=== PATIENT | female | born 1970 | race Caucasian/White ===

== ENCOUNTER 2016-08-08 19:59 | Emergency (ER) | payer MEDICAID ==
[~2016-08-08] VITALS: Ht 162.6 cm; Wt 71.1 kg
[~2016-08-08 19:59] MED LIST: PANT40TA3 PO; SERT25TA PO
[2016-08-08] MEDS ORDERED: SODIUM CHLORIDE 0.9% 1,000 ML IV ONE (20:17)
[2016-08-08] MEDS ORDERED: ONDANSETRON 2MG/ML, 2ML ONE (20:28)
[2016-08-08] MEDS ORDERED: MORPHINE SULFATE 4 MG/ML, 1ML ONE ×2 (20:28→21:42)
[2016-08-08] MEDS ORDERED: OXYcodone/APAP 5/325MG TABLET PO ONE (20:30)
[2016-08-08] MEDS ORDERED: SODIUM CHLORIDE FLUSH 10ML SYR IVF ONE (20:30)
[2016-08-08] MEDS ORDERED: ONDANSETRON 2MG/ML, 2ML IVPush ONE (20:30)
[2016-08-08] MEDS: MORPHINE SULFATE 4 MG/ML, 1ML IVPush PRN ×2 (20:35→21:45)
[2016-08-08 20:44] LABS: BLOOD UREA NITROGEN 18 mg/dL (7-18)
[2016-08-08] MEDS ORDERED: BUPR-86 PO (20:47)
[2016-08-08] MEDS ORDERED: OMNIPAQUE 350 MG/ML, 100ML BOTTLE ONE (21:18)
[2016-08-08 21:44] VITALS: BP 132/72
[2016-08-08] MEDS ORDERED: KETOROLAC 30 MG/1 ML ONE (21:59)
[2016-08-08] MEDS ORDERED: KETOROLAC 30 MG/1 ML IVPush ONE (22:00)
== END 2016-08-08 22:28 | disposition home or self-care (01) ==
LOC: ED 22:00
DX: S13.4XXA Sprain of ligaments of cervical spine, initial encounter (principal); S30.1XXA Contusion of abdominal wall, initial encounter; S09.90XA Unspecified injury of head, initial encounter; V80.010A Animal-rider injured by fall from or being thrown from horse in noncollision accident, initial encounter; Y93.89 Activity, other specified; Y99.8 Other external cause status; Y92.9 Unspecified place or not applicable
CPT/HCPCS: 36415; 70450; 72125; 72131; 74177; 80048; 82040; 85025; 96361; 96374; 96375; 96376; 99285; J1885; J2405; J7030; Q9967

== ENCOUNTER 2017-07-02 21:20 | Emergency (ER) | payer MEDICAID ==
[~2017-07-02] VITALS: Ht 162.6 cm; Wt 69.6 kg
[~2017-07-02 21:20] MED LIST changes: +BUPR-86 PO
[2017-07-02 22:15] VITALS: BP 134/78
== END 2017-07-02 22:17 | disposition home or self-care (01) ==
LOC: ED 21:45
DX: B34.9 Viral infection, unspecified (principal)
CPT/HCPCS: 99281

== ENCOUNTER 2020-04-01 15:00 | Observation (INO) | payer BC, MEDICAID ==
[~2020-04-01] VITALS: Ht 162.6 cm; Wt 71.1 kg
--- NOTE | 2020-04-01 15:26 | NUR ---
RESEARCH SPECIALIST: PT TO ROOM FROM ELOISA SHARMA
--- NOTE | 2020-04-01 15:45 | NUR ---
PROVIDER AT BS. PT A&OX4, RESP EVEN & UNLABORED, SPEECH CLEAR, SKIN WNL. C/O DEEP INTERMITTENT LT LATERAL CP X 1 WEEK WHILE DRIVING TO WORK. NO MEDS TAKEN FOR SX. DENIES SOB, DYSPNEA, N/V. TODAY: "FELT SHAKY AND WEIRD". LAST ORAL INTAKE: 1030. LMP: HYST RX: ESTROGEN PATCH X 1 YEAR. HAS BEEN SEEN AT [facility] FOR SIMILAR SX.
[2020-04-01] MEDS ORDERED: ESTR-19 TD (15:57)
[2020-04-01] MEDS ORDERED: SERT-238 PO (15:57)
[2020-04-01] MEDS ORDERED: SODIUM CHLORIDE FLUSH 10ML SYR IVF ONE (16:00)
[2020-04-01] MEDS ORDERED: ASPIRIN 81 MG TABLET CHEW PO ONE (16:00)
--- NOTE | 2020-04-01 16:06 | NUR ---
DR PIERRE AT BS
[2020-04-01] MEDS ORDERED: ASPIRIN 81 MG TABLET CHEW ONE (16:13)
--- NOTE | 2020-04-01 16:16 | NUR ---
PT WAS AMBULATORY TO & FROM [facility] W/OUT INCIDENT; GAIT STEADY; CLEAR PALE YELLOW URINE SPECIMEN PROVIDED. CXR DONE. ASA GIVEN PER EMAR.
[2020-04-01] MEDS ORDERED: ASCORBIC ACID 500 MG TABLET ONE (16:34)
[2020-04-01 16:36] LABS: BASOPHILS % (AUTO) 1 % (0-1); EOSINOPHILS % (AUTO) 1 % (1-7); LYMPHOCYTES % (AUTO) 32 % (22-44); MEAN CORPUSCULAR HEMOGLOBIN 29.5 pg (27.0-34.8); MEAN CORPUSCULAR HGB CONC 33.5 g/dL (32.4-35.8); MEAN PLATELET VOLUME 8.2 fL (7.4-10.4); MONOCYTES % (AUTO) 6 % (2-9); NEUTROPHILS % (AUTO) 60 % (42-75); PLATELET COUNT 218 x10^3/uL (130-400); RED BLOOD COUNT 4.89 x10^6/uL (3.82-5.3); RED CELL DISTRIBUTION WIDTH 13.4 % (9.6-15.2)
[2020-04-01 16:39] LABS: MD NO
[2020-04-01 16:40] LABS: ANION GAP 4 mmol/L (5-15); CALCIUM 8.6 mg/dL (8.5-10.1); CHLORIDE 110 mmol/L (98-107)
[2020-04-01 16:41] LABS: ALANINE AMINOTRANSFERASE 23 U/L (12-78); ALBUMIN 3.8 g/dL (3.4-5.0)
[2020-04-01 16:45] LABS: ALKALINE PHOSPHATASE 58 U/L (45-117); BILIRUBIN,TOTAL 0.3 mg/dL (0.2-1.0); TOTAL PROTEIN 6.7 g/dL (6.4-8.2); TROPONIN I < 0.015 ng/mL (0.000-0.045)
--- NOTE | 2020-04-01 17:02 | NUR ---
SITTING QUIETLY ON GURNEY, USING CELL PHONE. MONITORING CONTINUING. PAIN NOW 06/17
--- NOTE | 2020-04-01 17:32 | NUR ---
PT ENDORSED TO HOMERO CALDWELL RN.
--- NOTE | 2020-04-01 19:32 | NUR ---
PT SITTING ON GURNEY, EATING DINNER BROUGHT IN BY HER BROTHER.
--- NOTE | 2020-04-01 19:35 | NUR ---
AWAITING ROOM ASSIGNMENT
--- NOTE | 2020-04-01 20:13 | NUR ---
PT SPEAKING W/ HER BROTHER, WHO IS IN THE ROOM.
--- NOTE | 2020-04-01 20:37 | NUR ---
CALLED RECEIVING RN
--- NOTE | 2020-04-01 20:40 | NUR ---
REPORT GIVEN TO GONZÁLEZ PATEL FOR ROOM [phone]
[2020-04-01 21:51] VITALS: BP 116/73
[2020-04-02] MEDS ORDERED: LABETALOL 5MG/ML, 20ML IVPush PRN
[2020-04-02] MEDS ORDERED: MELATONIN 5 MG TABLET PO PRN
[2020-04-02] MEDS ORDERED: morphine SULFATE 10 MG/ML, 1ML IVPush PRN
[2020-04-02] MEDS ORDERED: DOCUSATE 100 MG CAPSULE PO PRN
[2020-04-02] MEDS ORDERED: ACETAMINOPHEN 325 MG TABLET PO PRN
[2020-04-02] MEDS ORDERED: ONDANSETRON 2MG/ML, 2ML IVPush PRN
[2020-04-02 00:15] LABS: TROPONIN I < 0.015 ng/mL (0.000-0.045)
[2020-04-02 01:09] VITALS: BP 127/80
[2020-04-02 05:35] LABS: CHLORIDE 113 mmol/L (98-107)
[2020-04-02 05:37] LABS: BASOPHILS % (AUTO) 1 % (0-1); EOSINOPHILS % (AUTO) 2 % (1-7); LYMPHOCYTES % (AUTO) 43 % (22-44); MEAN CORPUSCULAR HGB CONC 33.7 g/dL (32.4-35.8); MEAN PLATELET VOLUME 8.1 fL (7.4-10.4); MONOCYTES % (AUTO) 8 % (2-9); NEUTROPHILS % (AUTO) 47 % (42-75); PLATELET COUNT 198 x10^3/uL (130-400); RED BLOOD COUNT 4.63 x10^6/uL (3.82-5.3); RED CELL DISTRIBUTION WIDTH 13.8 % (9.6-15.2)
[2020-04-02 05:41] LABS: MD NO
[2020-04-02 05:54] LABS: ANION GAP 6 mmol/L (5-15); CALCIUM 8.5 mg/dL (8.5-10.1); CHOL/HDL RATIO 3.1; CHOLESTEROL, TOTAL 215 mg/dL (140-239); CREATININE 1.17 mg/dL (0.55-1.02); HDL CHOL % 32 % (28-40); HDL CHOLESTEROL (DIRECT) 69 mg/dL (40-60); LDL CHOLESTEROL,CALCULATED 132 mg/dL (54-169); LDL/HDL RATIO 1.9 (0.5-3.0); TRIGLYCERIDES 72 mg/dL (50-200); TROPONIN I < 0.015 ng/mL (0.000-0.045); VLDL CHOLESTEROL 14 mg/dL (0-25)
[2020-04-02 06:59] VITALS: BP 115/73
[2020-04-02 12:46] VITALS: BP 121/79
== END 2020-04-02 15:24 | disposition home or self-care (01) ==
LOC: ED 15:47 → EDIP 18:18 → INTOOBSV 18:18 → 5SO 20:59
PROVIDERS: ADMIT Internal Medicine; ATTEND Internal Medicine
DX: R07.89 Other chest pain (principal); R03.0 Elevated blood-pressure reading, without diagnosis of hypertension; N64.4 Mastodynia; M79.629 Pain in unspecified upper arm; K21.9 Gastro-esophageal reflux disease without esophagitis; E78.2 Mixed hyperlipidemia; F32.9 Major depressive disorder, single episode, unspecified; Z79.890 Hormone replacement therapy; Z79.899 Other long term (current) drug therapy; Z90.710 Acquired absence of both cervix and uterus
CPT/HCPCS: 36415; 71045; 80048; 80053; 80061; 83036; 83735; 84100; 84443; 84484; 85025; 85379; 93005; 93017; 93306; 96374; 99285; G0378; J2270